=== PATIENT | female | born 1985 | race Caucasian/White ===

== ENCOUNTER 2018-08-28 13:07 | Emergency (ER) | payer SELFPAY ==
[~2018-08-28] VITALS: Ht 165.1 cm; Wt 116.6 kg
[2018-08-28 13:29] VITALS: Ht 165.1 cm; Wt 116.6 kg
[2018-08-28 15:53] VITALS: BP 120/68
== END 2018-08-28 15:53 | disposition home or self-care (01) ==
LOC: ED 13:07
DX: M54.5 Low back pain (principal)
CPT/HCPCS: J1885